=== PATIENT | male | born 1985 | race African-American/Black ===

== ENCOUNTER 2016-12-03 23:59 | Emergency (ER) | payer OTHER ==
[2016-12-04] MEDS ORDERED: Tetan/Diph/Pertus SYR(Tdap)* 0.5 ML SYR(BOOSTRIX) use SYR IM ONE (00:22)
[2016-12-04 02:07] VITALS: BP 171/113
--- NOTE | 2016-12-04 16:37 | ED ---
Laceration/Wound HPI - HPI Summary HPI Summary: Patient arrives from [address] [place] [address] after being struck with a unknown sharp object in the yard of the long-term. Patient was struck in the right cheek to the neck approximately 1.5 hours prior to arrival. Nursing staff were able to place gauze over the wound and wrap with compression bandage. Patient denies pain. Minimal blood loss per guards. Denies health problems, medications or blood thinners. - History of Current Complaint Stated Complaint: RIGHT CHEEK LAC Time Seen by Provider: 12/04/16 00:06 Hx Obtained From: Patient Mechanism of Injury: Sharp/Blunt Trauma Onset/Duration: Sudden Onset Aggravating: Nothing Alleviating: Nothing Onset Severity: Mild Current Severity: Mild Pain Intensity: 0 Pain Scale Used: 0-10 Numeric Associated Signs & Symptoms: Negative PMH/Surg Hx/FS Hx/Imm Hx Previously Healthy: Yes - Immunization History Date of Tetanus Vaccine: october 2014 Immunizations Up to Date: Unable to Obtain/Confirm Infectious Disease History: No Infectious Disease History: Denies: Traveled Outside the [place] in Last 30 Days - Social History Lives: Alone - patient lives at [facility] Alcohol Use: None Hx Substance Use: No Substance Use Type: Reports: None Smoking Status (MU): Never Smoked Tobacco Review of Systems Constitutional: Negative Cardiovascular: Negative Respiratory: Negative Gastrointestinal: Negative Musculoskeletal: Negative Positive: Other - laceration over right cheek extending to right side of neck measuring 15cm Neurological: Negative Psychological: Normal All Other Systems Reviewed And Are Negative: Yes Physical Exam Triage Information Reviewed: Yes Vital Signs On Initial Exam: Initial Vitals Temp Pulse Resp BP Pulse Ox 98.7 F 81 15 124/72 98 12/04/16 00:01 12/04/16 00:01 12/04/16 00:01 12/04/16 00:01 12/04/16 00:01 Vital Signs Reviewed: Yes Appearance: Positive: Well-Appearing, Well-Nourished Skin: Positive: Other - 15cm laceration extending from right cheek to right side of neck - superficial and linear Head/Face: Positive: Normal Head/Face Inspection Eyes: Positive: TOMI, Conjunctiva Clear Neck: Positive: Supple, No Lymphadenopathy Respiratory/Lung Sounds: Positive: Clear to Auscultation, Breath Sounds Present Cardiovascular: Positive: RRR Musculoskeletal: Positive: Normal, Strength/ROM Intact Neurological: Positive: Sensory/Motor Intact, Speech Normal Psychiatric: Positive: Normal AVPU Assessment: Alert - [place] Coma Scale Coma Scale Total: 15 Procedures - Laceration/Wound Repair 1 Location: face Description: Linear Anesthesia: 2.0%, Epi Betadine Prep?: No Laceration/Wound Explored: clean Debridement: minimal Number of Sutures: 35 Layer Closure?: No Sterile Dressing Applied?: No Diagnostics - Vital Signs Vital Signs Temp Pulse Resp BP Pulse Ox 12/04/16 02:08 98.7 F 12/04/16 02:04 87 92 12/04/16 02:01 171/113 12/04/16 00:45 72 98 12/04/16 00:34 69 98 12/04/16 00:31 130/75 12/04/16 00:01 98.7 F 81 15 124/72 98 - Laboratory Lab Statement: Any lab studies that have been ordered have been reviewed, and results considered in the medical decision making process. Laceration Repair Course/Dx - Course Course Of Treatment: Patients wound cleaned and re-dressed. 35 sutures placed. Telfa dressing with antibiotic ointment over wound. Patient tolerated well. Instructions given to patient and guards with suture removal in 5 days. Bandage can be removed in 1 day. - Differential Dx Differental Diagnoses: Laceration, Puncture Wound, Tendon Laceration - Clinical Impression Provider Diagnoses: Laceration of face Discharge - Discharge Plan Condition: Stable Disposition: HOME Patient Education Materials: Care For Your Stitches (ED) Referrals: Non Staff,Doctor [Primary Care Provider] - Additional Instructions: Sutures out in 5 days. Able to get wet with soap and water beginning tomorrow. If symptoms of infection develop such as redness, drainage, fever - come back to ED. Images - Images Head: 1 - linear superficial laceration 2 - laceration linear superficial
--- NOTE | 2017-03-10 08:43 | PN ---
Progress Note - Progress Note Note: length of laceration : 16cm
== END 2016-12-04 02:08 | disposition home or self-care (01) ==
LOC: ED 23:59
DX: S01.411A Laceration without foreign body of right cheek and temporomandibular area, initial encounter (principal); W50.0XXA Accidental hit or strike by another person, initial encounter; Y93.9 Activity, unspecified; Y92.9 Unspecified place or not applicable; Y99.9 Unspecified external cause status
CPT/HCPCS: 12011; 99282